=== PATIENT | male | born 1960 | race Caucasian/White ===

== ENCOUNTER → 2017-06-18 | Outpatient (CLI) | payer OTHER | LOC: M RAD 11:17 | DX: M25.562 Pain in left knee (principal) ==

== ENCOUNTER → 2018-04-02 | Outpatient (CLI) | payer OTHER ==
[2018-04-02 17:54] LABS: ALBUMIN 3.2 GM/DL (3.2-5.2); ALBUMIN/GLOBULIN RATIO 0.89 (1.00-1.93); ALKALINE PHOSPHATASE 89 U/L (45-117); ALT/SGPT 39 U/L (12-78); AST/SGOT 16 U/L (7-37); BILIRUBIN,DIRECT < 0.1 MG/DL (0.0-0.2); BILIRUBIN,TOTAL 0.3 MG/DL (0.2-1.0); CHOLESTEROL LEVEL 158 MG/DL (<200); CHOLESTEROL RISK RATIO 3.761 (<5); HDL CHOLESTEROL 42 MG/DL (>40); LDL CHOLESTEROL 98 MG/DL (<100); NON-HDL-C 116 MG/DL; TOTAL PROTEIN 6.8 GM/DL (6.4-8.2); TRIGLYCERIDES LEVEL 92 MG/DL (<150)
== END ==
LOC: M WUC 11:33
DX: E78.2 Mixed hyperlipidemia (principal)
CPT/HCPCS: 80076

== ENCOUNTER → 2019-04-07 | Outpatient (CLI) | payer OTHER ==
--- NOTE | 2019-04-07 11:20 | REP ---
ULTRASOUND ABDOMEN: Real-time sonographic evaluation of abdomen performed. Patient has had a cholecystectomy 01/2019. There is no intrahepatic or extrahepatic biliary dilatation, common bile duct measuring 4 mm. Visualized liver is grossly unremarkable with no gross mass. Pancreas is not well seen due to overlying bowel gas, but no gross mass is seen. Spleen is normal in size with a length of 10.8 cm. Kidneys are normal in size and echotexture, right kidney measuring 11.4 x 4.1 x 5.2 cm and left kidney 11.5 x 4.6 x 5.5 cm. There are multiple bilateral renal cysts. Largest cyst on the right is in the upper pole 2.5 x 1.2 x 2.3 cm with two other smaller cysts seen. Largest cyst on the left measures 2.6 x 2.2 x 2.0 cm with two smaller cysts seen. Abdominal aorta is normal in caliber with no aneurysm, proximally measuring 2.5 cm and distally 2.0 cm. No ascites is seen. IMPRESSION: Status post cholecystectomy. No biliary dilatation or free fluid. Bilateral renal cysts. Electronically Signed by Ángel Duran MD 04/10/2019 04:10 P
== END ==
LOC: M RAD 07:35
PROVIDERS: ATTEND Nurse Practitioner Family
DX: Z01.818 Encounter for other preprocedural examination (principal); N18.6 End stage renal disease

== ENCOUNTER 2019-04-18 18:58 | Emergency (ER) | payer OTHER ==
[~2019-04-18] VITALS: Ht 170.2 cm; Wt 96.4 kg
[2019-04-18] MEDS ORDERED: VITA50005 (19:35)
[2019-04-18] MEDS ORDERED: METO1TAB87 (19:35)
[2019-04-18] MEDS ORDERED: IRBE300T10 (19:35)
[2019-04-18] MEDS ORDERED: AMLO5TAB6 (19:35)
[2019-04-18] MEDS ORDERED: CINA60TA3 (19:35)
[2019-04-18] MEDS ORDERED: SODI650T (19:35)
[2019-04-18] MEDS ORDERED: ONGL10TA3 (19:35)
[2019-04-18] MEDS ORDERED: ATOR1TAB21 (19:35)
[2019-04-18] MEDS ORDERED: CALC1CAP31 (19:35)
[2019-04-18] MEDS ORDERED: FEBU40TA2 (19:38)
[2019-04-18] MEDS ORDERED: CINA30TA4 (19:38)
[2019-04-18] MEDS ORDERED: FEBU40TA4 (19:38)
[2019-04-18] MEDS ORDERED: VP-V1TAB (19:38)
[2019-04-18] MEDS ORDERED: CINA30TA5 (19:38)
[2019-04-18] MEDS ORDERED: SEVE400T (19:38)
[2019-04-18] MEDS ORDERED: CINA30TA4 PO (19:40)
[2019-04-18] MEDS ORDERED: DULC5TAB PO (19:41)
[2019-04-18] MEDS ORDERED: ACETAMINOPHEN 325 MG TAB PO ONE (19:45)
[2019-04-18] MEDS ORDERED: ACET-683 PO (20:09)
--- NOTE | 2019-04-18 20:33 | REP ---
Clinical: Pain Technique: AP, lateral, bilateral oblique and sunrise views right knee. Findings: The osseous structures and joint spaces are intact and there is no evidence for acute fracture or dislocation. Generalized age-related changes are appreciated including evidence for patellar tendinopathy. Suprapatellar effusion cannot be excluded. Surrounding soft tissues are unremarkable. No subcutaneous emphysema or radiodense foreign body. Impression: No acute fracture or dislocation. Generalized degenerative changes. Electronically Signed by Rian Flower MD 04/18/2019 08:25 P
[2019-04-18 21:00] VITALS: BP 150/85
== END 2019-04-18 21:05 | disposition home or self-care (01) ==
LOC: M ED 18:58
DX: M17.11 Unilateral primary osteoarthritis, right knee (principal); M25.461 Effusion, right knee; I25.10 Atherosclerotic heart disease of native coronary artery without angina pectoris; E11.9 Type 2 diabetes mellitus without complications; E78.5 Hyperlipidemia, unspecified; F17.210 Nicotine dependence, cigarettes, uncomplicated; Z79.4 Long term (current) use of insulin; Z79.899 Other long term (current) drug therapy

== ENCOUNTER → 2019-04-20 | Outpatient (CLI) | payer OTHER ==
[~2019-04-20] MED LIST: ACET-683 PO; AMLO5TAB6; ATOR1TAB21; CALC1CAP31; CINA30TA4; CINA30TA4 PO; CINA30TA5; CINA60TA3; DULC5TAB PO; FEBU40TA2; FEBU40TA4; IRBE300T10; METO1TAB87; ONGL10TA3; SEVE400T; SODI650T; VITA50005; VP-V1TAB
--- NOTE | 2019-04-20 15:53 | REP ---
Right lower extremity Duplex Doppler venous ultrasound: Real time compression and duplex Doppler interrogation of the right lower extremity deep venous system is performed. The right common femoral, superficial femoral and popliteal veins are fully compressible with transducer pressure and demonstrate normal spontaneous and phasic flow, without evidence of deep venous thrombosis. Impression: No evidence of deep venous thrombosis of the right lower extremity femoral popliteal venous system. Electronically Signed by Ángel Duran MD 04/20/2019 03:45 P
== END ==
LOC: M RAD 15:07
PROVIDERS: ATTEND Nurse Practitioner Family
DX: M79.604 Pain in right leg (principal); R60.0 Localized edema

== ENCOUNTER → 2019-05-01 | Outpatient (CLI) | payer OTHER, BC ==
[2019-05-01 11:11] LABS: BASO # 0.1 10^3/uL (0.0-0.2); BASO % 0.6 % (0.0-1.0); EOS # 0.7 10^3/uL (0.0-0.5); EOS % 5.7 % (0.0-3.0); HEMATOCRIT 38.1 % (42.0-52.0); LYMPH # 2.2 10^3/uL (1.5-5.0); LYMPH % 17.1 % (24.0-44.0); MEAN CORPUSCULAR HEMOGLOBIN 31.6 pg (27.0-33.0); MEAN CORPUSCULAR HGB CONC 34.1 g/dl (32.0-36.5); MEAN CORPUSCULAR VOLUME 92.5 fl (80.0-96.0); MONO # 1.1 10^3/uL (0.0-0.8); MONO % 8.3 % (0.0-5.0); NEUTROPHILS # 8.7 10^3/uL (1.5-8.5); NEUTROPHILS % 67.2 % (36.0-66.0); PLATELET COUNT, AUTOMATED 212 10^3/uL (150-450); RED BLOOD COUNT 4.12 10^6/uL (4.30-6.10)
[2019-05-01 11:23] LABS: INR 1.07; PROTHROMBIN TIME 13.6 SECONDS (11.8-14.0)
[2019-05-01 11:24] LABS: PARTIAL THROMBOPLASTIN TIME 28.5 SECONDS (25.0-38.4)
[2019-05-01 11:47] LABS: ALBUMIN 3.4 GM/DL (3.2-5.2); ALT/SGPT 36 U/L (12-78); BILIRUBIN,DIRECT 0.1 MG/DL (0.0-0.2); BILIRUBIN,TOTAL 0.4 MG/DL (0.2-1.0); BLOOD UREA NITROGEN 67 MG/DL (7-18); CALCIUM LEVEL 11.3 MG/DL (8.8-10.2); CARBON DIOXIDE LEVEL 19 MEQ/L (21-32); CHLORIDE LEVEL 113 MEQ/L (98-107); CHOLESTEROL LEVEL 132 MG/DL (<200); CREATININE FOR GFR 5.83 MG/DL (0.70-1.30); GLOMERULAR FILTRATION RATE 10.6 (>49); GLUCOSE, FASTING 90 MG/DL (70-100); HDL CHOLESTEROL 50 MG/DL (>40); LDL CHOLESTEROL 66 MG/DL (<100); MAGNESIUM LEVEL 1.9 MG/DL (1.8-2.4); NON-HDL-C 82 MG/DL; PHOSPHORUS LEVEL 7.2 MG/DL (2.5-4.9); POTASSIUM SERUM 4.5 MEQ/L (3.5-5.1); PROSTATIC SPECIFIC AG MONITOR 1.55 NG/ML (< 4.00); SODIUM LEVEL 141 MEQ/L (136-145); TRIGLYCERIDES LEVEL 81 MG/DL (<150); URIC ACID 5.9 MG/DL (3.5-7.2)
[2019-05-01 11:50] LABS: PTH INTACT 341.9 PG/ML (18.5-88.0)
[2019-05-01 11:51] LABS: HEPATITIS B SURFACE ANTIBODY NEGATIVE (POSITIVE)
[2019-05-01 12:02] LABS: HEPATITIS B SURFACE ANTIGEN NEGATIVE (NEGATIVE)
[2019-05-01 12:12] LABS: HEMOGLOBIN A1c 5.2 %
[2019-05-01 12:29] LABS: HEPATITIS C VIRUS ABY INDEX 0.2 INDEX (<0.8)
[2019-05-03 00:07] LABS: CARDIOLIPIN IGA ANTIBODY <9 APL U/mL (0-11); CARDIOLIPIN IGG ANTIBODY <9 GPL U/mL (0-14); CARDIOLIPIN IGM ANTIBODY <9 MPL U/mL (0-12); EBV AB TO NUCLEAR ANTIGEN 26.7 U/mL (0.0-17.9); EBV VIRAL CAPSID AG IgM <36.0 U/mL (0.0-35.9); G6PD2 4.01 x10E6/uL (4.14-5.80); G6PD3 276 (146-376); HERPES ZOSTER, VARICELLA IgG 1259 index (Immune >165); RUBEOLA IgG ANTIBODY >300.0 AU/mL (Immune >16.4)
[2019-05-03 09:33] LABS: HIV 1&2 SCREEN CENTAUR NEGATIVE (NEGATIVE)
== END ==
LOC: M LAB 10:14
PROVIDERS: ATTEND Nurse Practitioner Family
DX: Z01.818 Encounter for other preprocedural examination (principal)

== ENCOUNTER → 2019-05-01 | Outpatient (CLI) | payer BC, OTHER ==
[2019-05-01 11:12] LABS: HEMATOCRIT 38.3 % (42.0-52.0); HEMOGLOBIN 12.9 g/dl (13.5-17.5); MEAN CORPUSCULAR HEMOGLOBIN 31.2 pg (27.0-33.0); MEAN CORPUSCULAR HGB CONC 33.7 g/dl (32.0-36.5); MEAN CORPUSCULAR VOLUME 92.5 fl (80.0-96.0); PLATELET COUNT, AUTOMATED 203 10^3/uL (150-450); RED BLOOD COUNT 4.14 10^6/uL (4.30-6.10)
[2019-05-01 11:45] LABS: ALBUMIN 3.4 GM/DL (3.2-5.2); CALCIUM LEVEL 11.5 MG/DL (8.8-10.2); CREATININE FOR GFR 5.91 MG/DL (0.70-1.30); GLOMERULAR FILTRATION RATE 10.4 (>49); PHOSPHORUS LEVEL 7.3 MG/DL (2.5-4.9); POTASSIUM SERUM 4.5 MEQ/L (3.5-5.1)
[2019-05-01 11:50] LABS: PTH INTACT 335.7 PG/ML (18.5-88.0)
== END ==
LOC: M LAB 10:03
DX: I12.0 Hypertensive chronic kidney disease with stage 5 chronic kidney disease or end stage renal disease (principal); N18.5 Chronic kidney disease, stage 5

== ENCOUNTER → 2019-05-01 | Outpatient (CLI) | payer BC, OTHER ==
--- NOTE | 2019-05-01 21:56 | REP ---
Clinical: Pretransplant evaluation. Technique: Axial noncontrast images from the thoracic inlet to the upper abdomen with coronal and sagittal re-formations. Findings: The bilateral lung bruno are well-aerated and clear. No consolidation, nodule or mass lesion. No pleural effusion or pneumothorax. Tracheobronchial tree is patent. No significant adenopathy. Atherosclerotic changes of the thoracic aorta and coronary arteries noted without aortic aneurysm or cardiomegaly. No pericardial effusion. Surrounding musculoskeletal structures are intact and without focal osseous abnormality. Impression: Normal noncontrast chest CT. Electronically Signed by Rian Flower MD 05/01/2019 09:48 P
== END ==
LOC: M RAD 09:18
PROVIDERS: ATTEND Nurse Practitioner Family
DX: Z01.818 Encounter for other preprocedural examination (principal)

== ENCOUNTER 2019-07-04 10:08 | Day surgery (SDC) | payer OTHER, BC ==
[~2019-07-04] VITALS: Ht 170.2 cm; Wt 97.1 kg
[~2019-07-04 10:08] MED LIST changes: -AMLO5TAB6; +AMLO5TAB6 PO; -ATOR1TAB21; +ATOR1TAB21 PO; -CALC1CAP31; +CALC1CAP31 PO; -CINA30TA4; -FEBU40TA4; +FEBU40TA4 PO; -IRBE300T10; +IRBE300T7 PO; -METO1TAB87; +METO1TAB87 PO; +NS 1,000 ML IV ONE; -ONGL10TA3; +ONGL10TA3 PO; -SEVE400T; +SEVE400T PO; -SODI650T; +SODI650T PO; -VITA50005; +VITA50005 PO; -VP-V1TAB; +VP-V1TAB PO
[2019-07-04] MEDS ORDERED: propofoL 200 MG/20 ML VIAL As Ordered ONE ×2 (12:32→13:01)
[2019-07-04 13:43] VITALS: BP 121/75
--- NOTE | 2019-07-04 14:12 | ROOR ---
Patient Name: Tres Guerra Procedure Date: 07/04/2019 12:09 PM Date of : 1960 Age: 59 Room: [facility] Gender: Male Note Status: Finalized Procedure: Colonoscopy Indications: Last colonoscopy: 2009 Providers: Davonte Kerr MD Referring MD: Biranna Hernandez MD Requesting Provider: Medicines: Monitored Anesthesia Care Complications: No immediate complications. Procedure: Pre-Anesthesia Assessment: - Prior to the procedure, a History and Physical was performed, and patient medications and allergies were reviewed. The patient is competent. The risks and benefits of the procedure and the sedation options and risks were discussed with the patient. All questions were answered and informed consent was obtained. Patient identification and proposed procedure were verified by the physician, the nurse and the anesthesiologist in the procedure room. Mental Status Examination: alert and oriented. Airway Examination: normal oropharyngeal airway and neck mobility. Prophylactic Antibiotics: The patient does not require prophylactic antibiotics. Prior Anticoagulants: The patient has taken no previous anticoagulant or antiplatelet agents. ASA Grade Assessment: III - A patient with severe systemic disease. After reviewing the risks and benefits, the patient was deemed in satisfactory condition to undergo the procedure. The anesthesia plan was to use monitored anesthesia care (MAC). Immediately prior to administration of medications, the patient was re-assessed for adequacy to receive sedatives. The heart rate, respiratory rate, oxygen saturations, blood pressure, adequacy of pulmonary ventilation, and response to care were monitored throughout the procedure. The physical status of the patient was re-assessed after the procedure. The Colonoscope was introduced through the anus and advanced to the cecum, identified by appendiceal orifice and ileocecal valve. The colonoscopy was unusually difficult due to a tortuous colon, the patient's body habitus and the patient's oxygen desaturation. Successful completion of the procedure was aided by changing the patient to a supine position, applying abdominal pressure, performing chin lift and administering oxygen. The patient tolerated the procedure well. The quality of the bowel preparation was good. Findings: Skin tags were found on perianal exam. A 25 mm polyp was found in the mid ascending colon. The polyp was flat. It was very difficult to see the polyp. Advancement to this point required prolonged attempts with repositioning of the paitient. He developed some oxygen desaturations which had to be addressed and there was significant motion of the colon. I was able to obtain a photo of the polyp but biopsy or polypectomy proved impossible. A 3 mm polyp was found at 70 cm proximal to the anus. The polyp was sessile. The polyp was removed with a jumbo cold forceps. Resection and retrieval were complete. Impression: - Perianal skin tags found on perianal exam. - One 25 mm polyp in the mid ascending colon. - One 3 mm polyp at 70 cm proximal to the anus, removed with a jumbo cold forceps. Resected and retrieved. Recommendation: - Discharge patient to home. - Resume previous diet. - Continue present medications. - Await pathology results. - Return to endoscopist in 1 week. Davonte Kerr MD Davonte Kerr MD 07/04/2019 2:12:24 PM Electronically signed by Davonte Kerr MD Number of Addenda: 0 Note Initiated On: 07/04/2019 12:09 PM Estimated Blood Loss: Estimated blood loss was minimal.
== END 2019-07-04 14:15 | disposition home or self-care (01) ==
LOC: M OPP 10:08
PROVIDERS: ATTEND Surgery
DX: Z12.11 Encounter for screening for malignant neoplasm of colon (principal); K63.5 Polyp of colon; K64.4 Residual hemorrhoidal skin tags

== ENCOUNTER → 2019-08-16 | Outpatient (CLI) | payer OTHER, BC ==
[~2019-08-16] MED LIST changes: -NS 1,000 ML IV ONE
== END ==
LOC: M LAB 15:41
PROVIDERS: ATTEND Nurse Practitioner Family
DX: Z01.818 Encounter for other preprocedural examination (principal)

== ENCOUNTER → 2019-08-19 | Outpatient (CLI) | payer BC, OTHER ==
[~2019-08-19] MED LIST changes: +AMLO1TAB24 PO; -AMLO5TAB6 PO
== END ==
LOC: M LABSMTC 10:51
PROVIDERS: ATTEND Anesthesiology
DX: Z01.818 Encounter for other preprocedural examination (principal); Z11.59 Encounter for screening for other viral diseases

== ENCOUNTER 2019-08-22 12:46 | Day surgery (SDC) | payer BC, OTHER ==
[~2019-08-22] VITALS: Ht 170.2 cm; Wt 97.5 kg
[~2019-08-22 12:46] MED LIST changes: -AMLO1TAB24 PO; +AMLO5TAB6 PO; +LR 1,000 ML IV ONE
[2019-08-22] MEDS ORDERED: propofoL 200 MG/20 ML VIAL As Ordered ONE (12:47)
[2019-08-22] MEDS ORDERED: LIDOCAINE 2% 100MG/5ML SDV (FOR ANES.) As Ordered ONE (12:50)
[2019-08-22] MEDS ORDERED: ROCURONIUM BROMIDE 50 MG/5 ML VIAL As Ordered ONE (14:07)
[2019-08-22] MEDS ORDERED: SUCCINYLCHOLINE 100 MG/5 ML SYRINGE (J0330) As Ordered ONE (14:07)
[2019-08-22] MEDS ORDERED: fentaNYL 100 MCG/2 ML INJECTION (J3010) As Ordered ONE (14:08)
[2019-08-22] MEDS ORDERED: MIDAZOLAM INJ 2MG/2ML VIAL (J2250 PER 1MG) As Ordered ONE (14:08)
[2019-08-22] MEDS ORDERED: PHENYLephrine HCL 500 MCG/5 ML (100MCG/ML) SYRINGE (J2370) As Ordered ONE (14:32)
[2019-08-22] MEDS ORDERED: ePHEDrine SULFATE 25 MG/5 ML(5MG/ML) SYRINGE As Ordered ONE (14:43)
[2019-08-22] MEDS ORDERED: ONDANSETRON 4MG/2ML VIAL As Ordered ONE (15:44)
[2019-08-22] MEDS ORDERED: SUGAMMADEX SODIUM 500 MG/5 ML VIAL (BRIDION) As Ordered ONE (15:44)
[2019-08-22] MEDS ORDERED: LR 1,000 ML IV SCH (16:30)
[2019-08-22] MEDS ORDERED: fentaNYL 100 MCG/2 ML INJECTION (J3010) IV PRN (16:30)
[2019-08-22] MEDS ORDERED: ONDANSETRON 4MG/2ML VIAL IV PRN (16:30)
[2019-08-22 18:05] VITALS: BP 128/74
--- NOTE | 2019-08-23 16:10 | RO ---
DATE OF PROCEDURE: 08/22/2019 PREOPERATIVE DIAGNOSIS: Ascending colon polyp. POSTOPERATIVE DIAGNOSES: 1. Ascending colon polyp. 2. Rectal polyp. PROCEDURE PERFORMED: Colonoscopy under general anesthesia with multiple biopsies of ascending colon polyp, spot marking of ascending colon polyp, and snare polypectomy of small rectal polyp. SURGEON: Dr. Kerr ANESTHESIA: General. INDICATIONS FOR THE PROCEDURE: Patient is a 59-year-old man who underwent a colonoscopy on 07/04/2019. He has worsening renal failure and is trying to be placed on the transplant list. As part of the screening process he underwent colonoscopy. This was performed under monitored anesthesia care. He was noted to have a polyp in the proximal ascending colon, but because of issues with his respiration making for significant motion during the procedure as well as difficulties in keeping the scope advanced into the ascending colon it was impossible to obtain tissue from the polyp. He is now for repeat colonoscopy under general anesthesia in hopes that this will allow resection of his polyp. OPERATIVE PROCEDURE: The patient was brought to the operating room and placed on the table in a supine position. He was placed under general endotracheal anesthesia and rolled into a left lateral position. A digital rectal examination was performed, which was normal. The adult video endoscope was then inserted into the rectum and advanced under continuous video monitoring to the cecum. The appendiceal orifice was well seen. The ileocecal valve was noted. In the proximal ascending colon he was noted to have a very definite flat polyp slightly raised from surrounding tissues. This extended over the downstream edge of a fold and it was very difficult to see the entire polyp. It appeared to be perhaps 1.5-2 cm in maximum diameter. I attempted to engage the polyp with a snare without success. I attempted to reposition the scope for a different angle of approach with the snare without success. The patient was placed into a supine position and with some external counter pressure to try to achieve better exposure of the polyp and to attempt removal with a polypectomy snare and all of this proved ineffective. I was able to biopsy the polyp with a jumbo forceps and multiple biopsies were obtained from the polyp destroying I believe much of it. Several fragments were broken free and these were collected from the suction chamber. There was some minimal bleeding from the site, which stopped spontaneously. I elected to sergio the spot and so three injections with the carbon spot marker were performed, one just proximal to the lesion and two distal to the lesion. I would note that the polyp did seem quite firm when the biopsies were being obtained. After completing the attention to this polyp, the scope was slowly withdrawn and the remainder of the colon was inspected. There did appear to be a few diverticula in the left colon, particularly in the sigmoid. A small polyp, which was semipedunculated, was noted in the rectum at about 10 cm and this was removed with a cauterizing snare and the specimen was sent as specimen #2. The patient tolerated the procedure well. There were some photographs that were obtained that were entered into the [employer] system. The patient was awakened in the operating room, extubated and moved to the recovery room in stable condition. ESPINOZA
== END 2019-08-22 18:08 | disposition home or self-care (01) ==
LOC: M SDC 12:46
PROVIDERS: ATTEND Surgery
DX: K63.5 Polyp of colon (principal); K62.1 Rectal polyp; D12.2 Benign neoplasm of ascending colon; I10 Essential (primary) hypertension; I25.10 Atherosclerotic heart disease of native coronary artery without angina pectoris; K21.9 Gastro-esophageal reflux disease without esophagitis; E66.8 Other obesity; E11.9 Type 2 diabetes mellitus without complications; Z79.82 Long term (current) use of aspirin; Z79.899 Other long term (current) drug therapy; Z98.61 Coronary angioplasty status
CPT/HCPCS: 45380; 45381; 45385; 88305; J0330; J2250; J2370; J2405; J3010

== ENCOUNTER → 2019-09-23 | Outpatient (CLI) | payer BC ==
[~2019-09-23] MED LIST changes: -LR 1,000 ML IV ONE
[2019-09-24 08:43] LABS: HEMATOCRIT 37.5 % (42.0-52.0); MEAN CORPUSCULAR HEMOGLOBIN 31.7 pg (27.0-33.0); MEAN CORPUSCULAR VOLUME 99.2 fl (80.0-96.0); PLATELET COUNT, AUTOMATED 195 10^3/uL (150-450); RED BLOOD COUNT 3.78 10^6/uL (4.30-6.10); WHITE BLOOD COUNT 9.8 10^3/uL (4.0-10.0)
[2019-09-24 09:06] LABS: ALBUMIN 3.5 GM/DL (3.2-5.2); CALCIUM LEVEL 8.7 MG/DL (8.8-10.2); CREATININE FOR GFR 6.23 MG/DL (0.70-1.30); GLOMERULAR FILTRATION RATE 9.8 (>49); POTASSIUM SERUM 4.9 MEQ/L (3.5-5.1)
[2019-09-25 10:39] LABS: PTH INTACT 315.7 PG/ML (18.5-88.0)
== END ==
LOC: M WUC 10:06
PROVIDERS: ATTEND Internal Medicine Nephrology

== ENCOUNTER → 2019-11-10 | Outpatient (CLI) | payer BC ==
[~2019-11-10] MED LIST changes: +AMLO1TAB24 PO; -AMLO5TAB6 PO
[2019-11-10 13:02] LABS: CHOLESTEROL RISK RATIO 2.926 (<5)
== END ==
LOC: M WUC 09:26
PROVIDERS: ATTEND Nurse Practitioner Family
DX: E78.2 Mixed hyperlipidemia (principal)

== ENCOUNTER → 2019-12-30 | Outpatient (CLI) | payer BC ==
[2019-12-30 18:08] LABS: ALBUMIN 3.4 GM/DL (3.2-5.2); CALCIUM LEVEL 9.2 MG/DL (8.8-10.2); CREATININE FOR GFR 6.59 MG/DL (0.70-1.30); GLOMERULAR FILTRATION RATE 9.2 (>49); PHOSPHORUS LEVEL 6.3 MG/DL (2.5-4.9); POTASSIUM SERUM 4.9 MEQ/L (3.5-5.1)
[2019-12-30 18:09] LABS: HEMATOCRIT 35.8 % (42.0-52.0); HEMOGLOBIN 11.8 g/dl (13.5-17.5); MEAN CORPUSCULAR HEMOGLOBIN 31.6 pg (27.0-33.0); PLATELET COUNT, AUTOMATED 200 10^3/uL (150-450); RED BLOOD COUNT 3.73 10^6/uL (4.30-6.10); WHITE BLOOD COUNT 11.4 10^3/uL (4.0-10.0)
== END ==
LOC: M WUC 09:18
PROVIDERS: ATTEND Internal Medicine Nephrology
DX: I12.0 Hypertensive chronic kidney disease with stage 5 chronic kidney disease or end stage renal disease (principal); N18.5 Chronic kidney disease, stage 5

== ENCOUNTER → 2020-08-05 | Outpatient (REF) | payer BC ==
[2020-08-05 19:10] LABS: PERCENT SATURATION 23.8 % (19.7-50.0)
== END ==
LOC: M LAB REF 16:40
PROVIDERS: ATTEND Internal Medicine Nephrology
DX: N18.9 Chronic kidney disease, unspecified (principal); D63.1 Anemia in chronic kidney disease

== ENCOUNTER → 2020-08-06 | Outpatient (CLI) | payer BC ==
[~2020-08-06] MED LIST changes: +ISOVUE-300 61% 50ML VIAL As Ordered ONE; +LIDOCAINE 1% MDV 20ML VIAL As Ordered ONE; +MIDAZOLAM INJ 2MG/2ML VIAL (J2250 PER 1MG) As Ordered ONE; +fentaNYL 100 MCG/2 ML INJECTION (J3010) As Ordered ONE
--- NOTE | 2020-08-06 15:18 | ROOPDOC ---
[facility] Report Of Operation Report of Operation DATE OF PROCEDURE: 08/06/20 PREPROCEDURE DIAGNOSES: Stage IV renal insufficiency with increased pulsatility and dilation of left brachiocephalic AV fistula POSTPROCEDURE DIAGNOSES: Same PROCEDURE: 1. Ultrasound-guided access left cephalic vein 2. Left upper extremity fistulogram and central venogram 3. Angioplasty left proximal cephalic vein was 7 x 100 [place] balloon 4. Angioplasties left cephalic vein over the bicep with 9 x 40 and 12 x 40 [place] balloon 5. Completion venogram SURGEON: Ryann Vicente MD ANESTHESIA: Local anesthesia 2 mL lidocaine. Moderate intravenous conscious sedation with administered by Dr. Vicente. The patient was independently monitored by registered nurse assigned to the Department of radiology using automated blood pressure, EKG, and pulse oximetry. The detailed sedation record is permanently stored in the hospital information system. The following is a brief sedation record: Start time 14:34, stop time 15:03, fentanyl 75 g IV, Versed 1.5 mg IV. CONTRAST: 14 cc [id number] INDICATION FOR PROCEDURE: This is a very pleasant 60-year-old patient with stage IV renal insufficiency very close to needing dialysis. The patient had some increased pulsatility in his AV fistula which was placed 4 years ago for potential diagnosis access if he ever needed it. And he was referred to us for possible fistulogram and intervention to improve the outflow of the fistula in case he needed it in the next few weeks for dialysis. Risks benefits and alternatives were explained to the patient needs agreeable to proceed. Informed consent was obtained. We plan to use very little contrast due to his severe chronic renal insufficiency. He understands that no amount of contrast is 100% safe, but we will hydrate him before during and after the procedure to help prevent contrast-induced nephropathy that could push him over into end-stage renal disease requiring dialysis. Patient was extensively counseled and agreeable to proceed. INTERPRETATION: 1. The AV anastomosis is widely patent on color-flow Doppler images. Inflow is excellent. 2. 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 Proximal to this there is widely patent flow over the shoulder, but the cephalic vein occludes and reconstitutes proximal to the junction with subclavian vein. Connecting the short segment occlusion is a branch of the cephalic vein that arc s over the named vein connecting the proximal and distal aspect. This is somewhat diminutive in size compared to the [place] veins, I estimate 5 mm. It also mildly stenotic. The subclavian vein and innominate vein are widely patent with excellent flow back to the heart. The central veins stenosis is noted. 3. After angioplasty of the proximal left cephalic vein with a 7 x 100 [place] balloon, we noted still some residual stenoses, so a second three-minute inflation was performed with a marked improvement in thrill and the fistula, and definitely improved size of the collateral branch that connects across the cephalic occlusion. 4. Although the stenosis at the valve in the left cephalic vein over the bicep appeared very stenotic, when we angioplasty with a 9 x 40 [place] balloon, there was no waist on the balloon. Therefore, we sized up to 12 x 40 [place] balloon, which I estimated with the size of the vein proximal and distal to the stenosis. With this balloon, there was a marked waist on the balloon at the valve which released with angioplasty. After three-minute inflation we had widely patent flow back central system with no significant residual stenosis and again improvement in the thrill of the fistula. No extravasation or embolization was noted after any of the angioplasty. REPORT OF OPERATION: Patient was brought to the angiographic suite in stable condition. His left upper extremity was prepped and draped in a sterile fashion. A timeout was performed. Local anesthesia was administer to skin and subcutane ous tissue over the cephalic vein near the AV anastomosis. Ultrasound was used to examine the AV anastomosis with color Doppler flow and he was noted to be widely patent, see images. We used ultrasound to gain access to the fistula with a microneedle and a wire was passed through this access and the needle was removed. A 4 [place] sheath was placed and flushed with saline. A fistulogram and central venogram were performed, please interpretation above. We advanced Glidewire into the central system under fluoroscopic guidance. We then exchange the sheath for 6 [place] sheath and flushed the sheath with saline. A 7 x 100 [place] balloon was advanced to cross the proximal cephalic vein for 2 separate angioplasties, please interpretation above. This definitely improved outflow. We then exchange the balloon for 9 x 40 [place] balloon at the area in the cephalic vein stenotic it at a valve. There was no significant waist on the balloon, so this was upsized to a 12 x 40 [place] balloon after exchanging the sheath or 7 [place] sheath and flushing the sheath was saline. A three-minute inflation was performed with the 12 x 40 balloon, and this provided a marked improvement in flow through the valve at the bicep in the left cephalic vein. There is again improvement in the thrill and almost no pulsatility remaining in the AV fistula. This definitely helped with outflow. No extravasation was noted. A f [id number] Prolene suture was placed at the exit site of the sheath and the sheath was removed is a suture was secured. Sterile dressings were applied and pressure was held. Good hemostasis was noted and the patient was taken to recovery in stable condition. He tolerated the procedure and the sedation well. ESTIMATED BLOOD LOSS: Approximately 3 mL. COMPLICATIONS: None. PLAN: Okay to use AV fistula for dialysis if dialysis is needed. Okay to resume home diet and medications. We appreciate the opportunity to participate in the care of this patient. RYANN VICENTE MD Aug 06, 2020 15:18
[2020-08-06 15:45] VITALS: BP 144/78
== END ==
LOC: M IRPRO 12:43
PROVIDERS: ATTEND Surgery Vascular Surgery
DX: T82.590A Other mechanical complication of surgically created arteriovenous fistula, initial encounter (principal); D63.1 Anemia in chronic kidney disease; E11.22 Type 2 diabetes mellitus with diabetic chronic kidney disease; E78.5 Hyperlipidemia, unspecified; I12.9 Hypertensive chronic kidney disease with stage 1 through stage 4 chronic kidney disease, or unspecified chronic kidney disease; I25.10 Atherosclerotic heart disease of native coronary artery without angina pectoris; M10.9 Gout, unspecified; N18.4 Chronic kidney disease, stage 4 (severe); N25.81 Secondary hyperparathyroidism of renal origin; R07.2 Precordial pain; R60.9 Edema, unspecified; R80.9 Proteinuria, unspecified; X58.XXXA Exposure to other specified factors, initial encounter; Z79.82 Long term (current) use of aspirin; Z79.899 Other long term (current) drug therapy
CPT/HCPCS: 36902; 99152; 99153; C1725; C1769; C1894; J1644; J2250; J3010; Q9967

== ENCOUNTER → 2020-11-15 | Outpatient (REF) | payer BC ==
[~2020-11-15] MED LIST changes: +ERGO500029 PO; -ISOVUE-300 61% 50ML VIAL As Ordered ONE; -LIDOCAINE 1% MDV 20ML VIAL As Ordered ONE; -MIDAZOLAM INJ 2MG/2ML VIAL (J2250 PER 1MG) As Ordered ONE; -VITA50005 PO; -fentaNYL 100 MCG/2 ML INJECTION (J3010) As Ordered ONE
== END ==
LOC: M LAB REF 18:08
PROVIDERS: ATTEND Internal Medicine Nephrology
DX: N18.5 Chronic kidney disease, stage 5 (principal); N25.81 Secondary hyperparathyroidism of renal origin; E11.22 Type 2 diabetes mellitus with diabetic chronic kidney disease

== ENCOUNTER → 2021-01-31 | Outpatient (REF) | payer BC | LOC: M LAB REF 13:44 | PROVIDERS: ATTEND Internal Medicine Nephrology | DX: N18.9 Chronic kidney disease, unspecified (principal); D63.1 Anemia in chronic kidney disease ==

== ENCOUNTER → 2021-04-28 | Outpatient (REF) | payer BC | LOC: M LAB REF 17:20 | PROVIDERS: ATTEND Nurse Practitioner Family | DX: E83.42 Hypomagnesemia (principal) ==

== ENCOUNTER → 2021-07-01 | Outpatient (CLI) | payer BC | LOC: M SOG 14:31 | PROVIDERS: ATTEND Orthopaedic Surgery | DX: M25.512 Pain in left shoulder (principal) ==

== ENCOUNTER → 2021-07-31 | Outpatient (CLI) | payer BC | LOC: M PLAIMG 10:17 | PROVIDERS: ATTEND Orthopaedic Surgery | DX: M75.42 Impingement syndrome of left shoulder (principal); M67.814 Other specified disorders of tendon, left shoulder ==

== ENCOUNTER → 2021-08-20 | Outpatient (REF) | payer BC ==
[2021-08-20 17:04] LABS: IRON (FE) 32 UG/DL (65-175); PERCENT SATURATION 10.9 % (19.7-50.0); TOTAL IRON BINDING CAPACITY 293 UG/DL (250-450)
[2021-08-20 17:18] LABS: HEPATITIS B SURFACE ANTIBODY POSITIVE (POSITIVE)
[2021-08-20 17:28] LABS: HEPATITIS B SURFACE ANTIGEN NEGATIVE (NEGATIVE)
[2021-08-20 17:56] LABS: HEPATITIS B CORE ANTIBODY IGM NEGATIVE (NEGATIVE); HEPATITIS C VIRUS ABY INDEX 0.1 INDEX (<0.8)
== END ==
LOC: M LAB REF 16:44
PROVIDERS: ATTEND Nurse Practitioner Family
DX: N18.5 Chronic kidney disease, stage 5 (principal); D50.9 Iron deficiency anemia, unspecified

== ENCOUNTER → 2021-10-31 | Outpatient (CLI) | payer BC | LOC: M PLAIMG 15:00 | PROVIDERS: ATTEND Physician Assistant | DX: M79.674 Pain in right toe(s) (principal) ==

== ENCOUNTER → 2021-11-19 | Outpatient (REF) | payer BC, OTHER ==
[2021-11-20 13:45] LABS: CRYSTALS, BODY FLUID NONE SEEN (NONE SEEN); SOURCE, BODY FLUID CRYSTALS OTHER
== END ==
LOC: M LAB REF 12:22
PROVIDERS: ATTEND Podiatrist
DX: M1A.0710 Idiopathic chronic gout, right ankle and foot, without tophus (tophi) (principal)

== ENCOUNTER → 2021-12-02 | Outpatient (CLI) | payer BC ==
[~2021-12-02] MED LIST changes: +ASPI-255 PO
== END ==
LOC: M CARPUL 08:15
PROVIDERS: ATTEND Internal Medicine
DX: Z01.818 Encounter for other preprocedural examination (principal)

== ENCOUNTER → 2021-12-02 | Outpatient (REF) | payer OTHER ==
[~2021-12-02] MED LIST changes: -ASPI-255 PO
== END ==
LOC: M RAD 12-01 13:37 → EDSTATUS 08:30
PROVIDERS: ATTEND Nurse Practitioner Family
DX: Z01.818 Encounter for other preprocedural examination (principal)

== ENCOUNTER → 2021-12-30 | Outpatient (CLI) | payer BC ==
[~2021-12-30] MED LIST changes: +ASPI-255 PO; +ISOVUE-300 61% 50ML VIAL As Ordered ONE; +LIDOCAINE 1% MDV 20ML VIAL As Ordered ONE; +MIDAZOLAM INJ 2MG/2ML VIAL (J2250 PER 1MG) As Ordered ONE; +ceFAZolin 2 GM/D5W 50 ML IV BAG (J0690 PER 500MG) As Ordered ONE; +ceFAZolin SOD 2 GM in IV 1 EA IV ONE; +fentaNYL 100 MCG/2 ML INJECTION As Ordered ONE
[2021-12-30 07:46] LABS: HEMATOCRIT 36.5 % (42.0-52.0); HEMOGLOBIN 12.4 g/dl (13.5-17.5); MEAN CORPUSCULAR HEMOGLOBIN 31.4 pg (27.0-33.0); MEAN CORPUSCULAR VOLUME 92.4 fl (80.0-96.0); PLATELET COUNT, AUTOMATED 201 10^3/uL (150-450); RED BLOOD COUNT 3.95 10^6/uL (4.30-6.10); WHITE BLOOD COUNT 10.8 10^3/uL (4.0-10.0)
[2021-12-30 08:33] LABS: INR 0.94; PARTIAL THROMBOPLASTIN TIME 30.5 SECONDS (25.9-37.0)
[2021-12-30 08:37] LABS: CALCIUM LEVEL 11.4 MG/DL (8.8-10.2); CREATININE FOR GFR 9.68 MG/DL (0.70-1.30); GLOMERULAR FILTRATION RATE 5.9 (>49); POTASSIUM SERUM 3.7 MEQ/L (3.5-5.1)
[2021-12-30 10:15] VITALS: BP 117/70
== END ==
LOC: M IRPRO 06:35
PROVIDERS: ATTEND Surgery Vascular Surgery
DX: N18.6 End stage renal disease (principal); Z99.2 Dependence on renal dialysis; I82.612 Acute embolism and thrombosis of superficial veins of left upper extremity
CPT/HCPCS: 36902; 80048; 85027; 85610; 85730; 86850; 86900; 86901; 99152; 99153; C1725; C1769; C1894; C2623; J0690; J1644; J2250; J3010; Q9967

== ENCOUNTER → 2022-01-20 | Outpatient (CLI) | payer BC ==
[~2022-01-20] MED LIST changes: -ISOVUE-300 61% 50ML VIAL As Ordered ONE; -LIDOCAINE 1% MDV 20ML VIAL As Ordered ONE; -MIDAZOLAM INJ 2MG/2ML VIAL (J2250 PER 1MG) As Ordered ONE; -ceFAZolin 2 GM/D5W 50 ML IV BAG (J0690 PER 500MG) As Ordered ONE; -ceFAZolin SOD 2 GM in IV 1 EA IV ONE; -fentaNYL 100 MCG/2 ML INJECTION As Ordered ONE
== END ==
LOC: M LABSMTC 09:11
PROVIDERS: ATTEND Anesthesiology
DX: Z01.818 Encounter for other preprocedural examination (principal); Z11.52 Encounter for screening for COVID-19

== ENCOUNTER 2022-01-23 07:26 | Day surgery (SDC) | payer BC ==
[~2022-01-23] VITALS: Ht 170.2 cm; Wt 90.7 kg
[~2022-01-23 07:26] MED LIST changes: +CelecoXIB 400 MG CAP PO ONE; +ceFAZolin SOD 2 GM in IV 1 EA IV ONE
[2022-01-23] MEDS ORDERED: fentaNYL 100 MCG/2 ML INJECTION As Ordered ONE ×2 (08:08→10:58)
[2022-01-23] MEDS ORDERED: ONDANSETRON 4MG 2ML VIAL As Ordered ONE (08:08)
[2022-01-23] MEDS ORDERED: MIDAZOLAM INJ 2MG/2ML VIAL (J2250 PER 1MG) As Ordered ONE (08:08)
[2022-01-23] MEDS ORDERED: ROCURONIUM BROMIDE 50 MG/5 ML VIAL As Ordered ONE (08:08)
[2022-01-23] MEDS ORDERED: dexameTHASONE 4 MG/ML 1ML VIAL (J1100 PER 1MG) As Ordered ONE (08:08)
[2022-01-23] MEDS ORDERED: LIDOCAINE 2% 100MG/5ML SDV (FOR ANES.) As Ordered ONE (08:08)
[2022-01-23] MEDS ORDERED: propofoL 200 MG/20 ML VIAL As Ordered ONE (08:08)
[2022-01-23] MEDS ORDERED: LR 1,000 ML IV SCH (08:35)
[2022-01-23] MEDS ORDERED: BUPIVACAINE HCL 0.25% 30ML VIAL As Ordered ONE (09:02)
[2022-01-23] MEDS ORDERED: HEPARIN SOD (PORCINE) 5000UNITS/ML 1ML VIAL/SYRINGE As Ordered ONE ×3 (09:03→10:34)
[2022-01-23] MEDS ORDERED: ePHEDrine SULFATE 25 MG/5 ML(5MG/ML) SYRINGE As Ordered ONE (10:07)
[2022-01-23] MEDS ORDERED: PHENYLephrine 500MCG 5ML (100MCG/ML) SYRINGE As Ordered ONE (10:17)
[2022-01-23] MEDS ORDERED: METOCLOPRAMIDE INJ 10MG/2ML VIAL (J2765 PER 1) As Ordered ONE (10:22)
[2022-01-23] MEDS ORDERED: ACETAMINOPHEN 1000MG 100ML IV BTL (OFIRMEV) (J0131 PER 10MG) As Ordered ONE (10:29)
[2022-01-23] MEDS ORDERED: SUGAMMADEX SODIUM 500 MG/5 ML VIAL (BRIDION) As Ordered ONE (10:31)
[2022-01-23] MEDS ORDERED: fentaNYL 100 MCG/2 ML INJECTION IV PRN (10:40)
[2022-01-23] MEDS ORDERED: NS 1,000 ML IV SCH (10:40)
[2022-01-23] MEDS ORDERED: HYDROMORPHONE HCL 0.5 MG/ 0.5 ML SYRINGE (J1170 PER 1) IV PRN (10:40)
[2022-01-23] MEDS ORDERED: ONDANSETRON 4MG 2ML VIAL IV PRN (10:40)
[2022-01-23] MEDS ORDERED: oxyCODONE 5MG TAB PO PRN (10:40)
[2022-01-23] MEDS ORDERED: OXYC1TAB23 PO (11:04)
[2022-01-23] MEDS ORDERED: PERCOCET 5MG/325MG TAB PO PRN ×2 (11:30)
[2022-01-23 12:39] VITALS: BP 123/74
== END 2022-01-23 12:50 | disposition home or self-care (01) ==
LOC: M SDC 07:26
PROVIDERS: ATTEND Surgery
DX: N18.6 End stage renal disease (principal); I12.0 Hypertensive chronic kidney disease with stage 5 chronic kidney disease or end stage renal disease; E78.5 Hyperlipidemia, unspecified; I25.10 Atherosclerotic heart disease of native coronary artery without angina pectoris; Z98.61 Coronary angioplasty status; Z79.82 Long term (current) use of aspirin; M10.9 Gout, unspecified; D64.9 Anemia, unspecified; G47.33 Obstructive sleep apnea (adult) (pediatric); Z79.899 Other long term (current) drug therapy
CPT/HCPCS: 36415; 49324; 84132; J0131; J0690; J1100; J1644; J2250; J2405; J2765; J3010

== ENCOUNTER → 2022-06-09 | Outpatient (CLI) | payer BC ==
[~2022-06-09] MED LIST changes: -CelecoXIB 400 MG CAP PO ONE; +OXYC1TAB23 PO; -ceFAZolin SOD 2 GM in IV 1 EA IV ONE
== END ==
LOC: M RAD 07:46
PROVIDERS: ATTEND Nurse Practitioner Family
DX: Z01.818 Encounter for other preprocedural examination (principal); N18.6 End stage renal disease

== ENCOUNTER → 2022-12-13 | Outpatient (CLI) | payer BC ==
[2022-12-13 09:31] LABS: BASO % 0.4 % (0.0-1.0); EOS # 0.2 10^3/uL (0.0-0.5); EOS % 2.3 % (0.0-3.0); HEMATOCRIT 37.3 % (42.0-52.0); HEMOGLOBIN 12.1 g/dl (13.5-17.5); LYMPH # 1.8 10^3/uL (1.5-5.0); LYMPH % 19.7 % (24.0-44.0); MEAN CORPUSCULAR HEMOGLOBIN 30.2 pg (27.0-33.0); MEAN CORPUSCULAR HGB CONC 32.4 g/dl (32.0-36.5); MONO # 0.8 10^3/uL (0.0-0.8); MONO % 9.3 % (2.0-8.0); NEUTROPHILS # 6.1 10^3/uL (1.5-8.5); NEUTROPHILS % 67.6 % (36.0-66.0); PLATELET COUNT, AUTOMATED 219 10^3/uL (150-450); RED BLOOD COUNT 4.01 10^6/uL (4.30-6.10)
[2022-12-13 09:34] LABS: APPEARANCE, URINE CLEAR (CLEAR); BACTERIA, URINE AUTO NEGATIVE (NEGATIVE); BILIRUBIN, URINE AUTO NEGATIVE (NEGATIVE); BLOOD, URINE BLOOD 1+ (NEGATIVE); COLOR, URINE YELLOW (YELLOW); GLUCOSE, URINE (UA) AUTO NEGATIVE (NEGATIVE); KETONE, URINE AUTO NEGATIVE (NEGATIVE); LEUKOCYTE ESTERASE, URINE AUTO NEGATIVE (NEGATIVE); NITRITE, URINE AUTO NEGATIVE (NEGATIVE); PROTEIN, URINE AUTO NEGATIVE (NEGATIVE); RBC, URINE AUTO 0 /HPF (0-3); SPECIFIC GRAVITY URINE AUTO 1.015 (1.002-1.035); SQUAMOUS EPITHELIAL CELL UR AU 0 /HPF (0-6); UROBILINOGEN, URINE AUTO 0.2 mg/dL (0.0-2.0); WBC, URINE AUTO 2 /HPF (0-3)
[2022-12-13 10:04] LABS: CREATININE,RANDOM URINE 97.6 MG/DL
[2022-12-13 10:19] LABS: ALBUMIN 3.8 G/DL (3.2-5.2); ALKALINE PHOSPHATASE 206 U/L (46-116); ALT/SGPT 23 U/L (7.0-40); AST/SGOT < 8 U/L (<34); BILIRUBIN,TOTAL 0.5 MG/DL (0.3-1.2); BLOOD UREA NITROGEN 31 MG/DL (9-23); CALCIUM LEVEL 9.8 MG/DL (8.3-10.6); CARBON DIOXIDE LEVEL 23 MMOL/L (20-31); CHLORIDE LEVEL 109 MMOL/L (98-107); CHOLESTEROL LEVEL 155 MG/DL (<200); CREATININE FOR GFR 1.55 MG/DL (0.70-1.30); GLOMERULAR FILTRATION RATE 48.3 (>49); GLUCOSE, FASTING 97 MG/DL (74-106); MAGNESIUM LEVEL 1.5 MG/DL (1.8-2.4); PHOSPHORUS LEVEL 2.7 MG/DL (2.4-5.1); POTASSIUM SERUM 4.9 MMOL/L (3.5-5.1); SODIUM LEVEL 138 MMOL/L (136-145); TOTAL PROTEIN 6.8 G/DL (5.7-8.2); TRIGLYCERIDES LEVEL 72 MG/DL (<150)
[2022-12-13 10:31] LABS: CHOLESTEROL RISK RATIO 2.48 (<5); HDL CHOLESTEROL 62.5 MG/DL (>40); LDL CHOLESTEROL 78.1 MG/DL (<100); NON-HDL-C 92.5 MG/DL
== END ==
LOC: M LAB 08:05
PROVIDERS: ATTEND Internal Medicine Nephrology
DX: Z94.0 Kidney transplant status (principal); N18.5 Chronic kidney disease, stage 5; D84.9 Immunodeficiency, unspecified; Z79.899 Other long term (current) drug therapy

== ENCOUNTER → 2022-12-27 | Outpatient (CLI) | payer BC ==
[2022-12-27 08:39] LABS: APPEARANCE, URINE CLEAR (CLEAR); BACTERIA, URINE AUTO NEGATIVE (NEGATIVE); BILIRUBIN, URINE AUTO NEGATIVE (NEGATIVE); BLOOD, URINE BLOOD 1+ (NEGATIVE); COLOR, URINE STRAW (YELLOW); GLUCOSE, URINE (UA) AUTO NEGATIVE (NEGATIVE); KETONE, URINE AUTO NEGATIVE (NEGATIVE); LEUKOCYTE ESTERASE, URINE AUTO TRACE (NEGATIVE); NITRITE, URINE AUTO NEGATIVE (NEGATIVE); PROTEIN, URINE AUTO NEGATIVE (NEGATIVE); RBC, URINE AUTO 2 /HPF (0-3); SPECIFIC GRAVITY URINE AUTO 1.012 (1.002-1.035); SQUAMOUS EPITHELIAL CELL UR AU 0 /HPF (0-6); UROBILINOGEN, URINE AUTO 0.2 mg/dL (0.0-2.0); WBC, URINE AUTO 6 /HPF (0-3)
[2022-12-27 08:42] LABS: BASO % 0.3 % (0.0-1.0); EOS # 0.2 10^3/uL (0.0-0.5); EOS % 2.5 % (0.0-3.0); HEMATOCRIT 36.9 % (42.0-52.0); LYMPH % 22.7 % (24.0-44.0); MEAN CORPUSCULAR HGB CONC 32.5 g/dl (32.0-36.5); MEAN CORPUSCULAR VOLUME 92.3 fl (80.0-96.0); MONO # 0.9 10^3/uL (0.0-0.8); MONO % 10.5 % (2.0-8.0); NEUTROPHILS # 5.6 10^3/uL (1.5-8.5); NEUTROPHILS % 62.9 % (36.0-66.0); PLATELET COUNT, AUTOMATED 199 10^3/uL (150-450); WHITE BLOOD COUNT 8.9 10^3/uL (4.0-10.0)
[2022-12-27 09:06] LABS: CREATININE,RANDOM URINE 67.2 MG/DL
[2022-12-27 09:09] LABS: ALBUMIN 3.7 G/DL (3.2-5.2); ALKALINE PHOSPHATASE 215 U/L (46-116); ALT/SGPT 25 U/L (7.0-40); AST/SGOT < 8 U/L (<34); BILIRUBIN,TOTAL 0.3 MG/DL (0.3-1.2); BLOOD UREA NITROGEN 29 MG/DL (9-23); CALCIUM LEVEL 9.6 MG/DL (8.3-10.6); CARBON DIOXIDE LEVEL 26 MMOL/L (20-31); CHLORIDE LEVEL 107 MMOL/L (98-107); CHOLESTEROL LEVEL 144 MG/DL (<200); CHOLESTEROL RISK RATIO 2.33 (<5); CREATININE FOR GFR 1.55 MG/DL (0.70-1.30); GLOMERULAR FILTRATION RATE 48.3 (>49); GLUCOSE, FASTING 105 MG/DL (74-106); HDL CHOLESTEROL 61.8 MG/DL (>40); MAGNESIUM LEVEL 1.5 MG/DL (1.8-2.4); NON-HDL-C 82.2 MG/DL; POTASSIUM SERUM 4.2 MMOL/L (3.5-5.1); SODIUM LEVEL 138 MMOL/L (136-145); TOTAL PROTEIN 6.6 G/DL (5.7-8.2); TRIGLYCERIDES LEVEL 56 MG/DL (<150)
== END ==
LOC: M LAB 08:09
PROVIDERS: ATTEND Internal Medicine Nephrology
DX: Z94.0 Kidney transplant status (principal); N18.5 Chronic kidney disease, stage 5; D84.9 Immunodeficiency, unspecified; Z79.899 Other long term (current) drug therapy

== ENCOUNTER → 2023-01-10 | Outpatient (CLI) | payer BC ==
[2023-01-10 08:44] LABS: BASO % 0.5 % (0.0-1.0); EOS # 0.2 10^3/uL (0.0-0.5); HEMATOCRIT 37.6 % (42.0-52.0); HEMOGLOBIN 12.6 g/dl (13.5-17.5); MEAN CORPUSCULAR HEMOGLOBIN 30.4 pg (27.0-33.0); MEAN CORPUSCULAR HGB CONC 33.5 g/dl (32.0-36.5); MEAN CORPUSCULAR VOLUME 90.6 fl (80.0-96.0); MONO # 0.7 10^3/uL (0.0-0.8); NEUTROPHILS # 5.8 10^3/uL (1.5-8.5); NEUTROPHILS % 65.8 % (36.0-66.0); PLATELET COUNT, AUTOMATED 209 10^3/uL (150-450); RED BLOOD COUNT 4.15 10^6/uL (4.30-6.10); WHITE BLOOD COUNT 8.8 10^3/uL (4.0-10.0)
[2023-01-10 08:49] LABS: APPEARANCE, URINE CLEAR (CLEAR); BACTERIA, URINE AUTO NEGATIVE (NEGATIVE); BILIRUBIN, URINE AUTO NEGATIVE (NEGATIVE); BLOOD, URINE BLOOD 1+ (NEGATIVE); COLOR, URINE YELLOW (YELLOW); GLUCOSE, URINE (UA) AUTO NEGATIVE (NEGATIVE); KETONE, URINE AUTO NEGATIVE (NEGATIVE); LEUKOCYTE ESTERASE, URINE AUTO NEGATIVE (NEGATIVE); NITRITE, URINE AUTO NEGATIVE (NEGATIVE); PROTEIN, URINE AUTO NEGATIVE (NEGATIVE); RBC, URINE AUTO 2 /HPF (0-3); SPECIFIC GRAVITY URINE AUTO 1.014 (1.002-1.035); SQUAMOUS EPITHELIAL CELL UR AU 0 /HPF (0-6); UROBILINOGEN, URINE AUTO 0.2 mg/dL (0.0-2.0); WBC, URINE AUTO 2 /HPF (0-3)
[2023-01-10 09:00] LABS: TOTAL PROTEIN,RANDOM URINE 22.3 MG/DL (0.0-14.0)
[2023-01-10 09:05] LABS: CREATININE,RANDOM URINE 94.4 MG/DL
[2023-01-10 09:06] LABS: ALBUMIN 3.9 G/DL (3.2-5.2); BILIRUBIN,TOTAL 0.5 MG/DL (0.3-1.2); CALCIUM LEVEL 9.2 MG/DL (8.3-10.6); CHOLESTEROL RISK RATIO 2.79 (<5); CREATININE FOR GFR 1.45 MG/DL (0.70-1.30); GLOMERULAR FILTRATION RATE 52.2 (>49); HDL CHOLESTEROL 58.3 MG/DL (>40); LDL CHOLESTEROL 83.7 MG/DL (<100); MAGNESIUM LEVEL 1.4 MG/DL (1.8-2.4); NON-HDL-C 104.7 MG/DL; PHOSPHORUS LEVEL 2.4 MG/DL (2.4-5.1); POTASSIUM SERUM 4.3 MMOL/L (3.5-5.1); TOTAL PROTEIN 6.9 G/DL (5.7-8.2)
== END ==
LOC: M LAB 08:04
PROVIDERS: ATTEND Internal Medicine Nephrology
DX: Z94.0 Kidney transplant status (principal); N18.5 Chronic kidney disease, stage 5; D84.9 Immunodeficiency, unspecified; Z79.899 Other long term (current) drug therapy

== ENCOUNTER → 2023-02-07 | Outpatient (CLI) | payer BC ==
[~2023-02-07] MED LIST changes: -FEBU40TA2; +FEBU40TA6
[2023-02-07 08:59] LABS: BASO % 0.4 % (0.0-1.0); EOS # 0.3 10^3/uL (0.0-0.5); EOS % 2.7 % (0.0-3.0); HEMATOCRIT 38.8 % (42.0-52.0); HEMOGLOBIN 12.8 g/dl (13.5-17.5); LYMPH # 2.1 10^3/uL (1.5-5.0); LYMPH % 22.7 % (24.0-44.0); MEAN CORPUSCULAR HEMOGLOBIN 29.4 pg (27.0-33.0); MEAN CORPUSCULAR VOLUME 89.2 fl (80.0-96.0); MONO # 0.9 10^3/uL (0.0-0.8); MONO % 9.8 % (2.0-8.0); NEUTROPHILS % 63.5 % (36.0-66.0); PLATELET COUNT, AUTOMATED 202 10^3/uL (150-450); RED BLOOD COUNT 4.35 10^6/uL (4.30-6.10); WHITE BLOOD COUNT 9.4 10^3/uL (4.0-10.0)
[2023-02-07 09:02] LABS: APPEARANCE, URINE CLEAR (CLEAR); BACTERIA, URINE AUTO NEGATIVE (NEGATIVE); BILIRUBIN, URINE AUTO NEGATIVE (NEGATIVE); BLOOD, URINE BLOOD 1+ (NEGATIVE); COLOR, URINE STRAW (YELLOW); GLUCOSE, URINE (UA) AUTO NEGATIVE (NEGATIVE); KETONE, URINE AUTO NEGATIVE (NEGATIVE); LEUKOCYTE ESTERASE, URINE AUTO NEGATIVE (NEGATIVE); NITRITE, URINE AUTO NEGATIVE (NEGATIVE); PROTEIN, URINE AUTO NEGATIVE (NEGATIVE); RBC, URINE AUTO 0 /HPF (0-3); SPECIFIC GRAVITY URINE AUTO 1.012 (1.002-1.035); SQUAMOUS EPITHELIAL CELL UR AU 0 /HPF (0-6); UROBILINOGEN, URINE AUTO 0.2 mg/dL (0.0-2.0); WBC, URINE AUTO 1 /HPF (0-3)
[2023-02-07 09:23] LABS: ALBUMIN 3.9 G/DL (3.2-5.2); BILIRUBIN,TOTAL 0.3 MG/DL (0.3-1.2); CALCIUM LEVEL 9.7 MG/DL (8.3-10.6); CHOLESTEROL RISK RATIO 2.6 (<5); CREATININE FOR GFR 1.52 MG/DL (0.70-1.30); GLOMERULAR FILTRATION RATE 49.4 (>49); HDL CHOLESTEROL 54.9 MG/DL (>40); LDL CHOLESTEROL 76.7 MG/DL (<100); MAGNESIUM LEVEL 1.6 MG/DL (1.8-2.4); NON-HDL-C 88.1 MG/DL; PHOSPHORUS LEVEL 3.3 MG/DL (2.4-5.1); POTASSIUM SERUM 4.7 MMOL/L (3.5-5.1); TOTAL PROTEIN 6.7 G/DL (5.7-8.2)
[2023-02-07 09:30] LABS: TOTAL PROTEIN,RANDOM URINE 16.2 MG/DL (0.0-14.0)
[2023-02-07 09:35] LABS: CREATININE,RANDOM URINE 70.2 MG/DL
== END ==
LOC: M LAB 08:14
PROVIDERS: ATTEND Internal Medicine Nephrology
DX: Z94.0 Kidney transplant status (principal); N18.5 Chronic kidney disease, stage 5; D84.9 Immunodeficiency, unspecified; Z79.899 Other long term (current) drug therapy

== ENCOUNTER → 2023-03-21 | Outpatient (CLI) | payer BC ==
[2023-03-21 08:44] LABS: APPEARANCE, URINE CLEAR (CLEAR); BACTERIA, URINE AUTO NEGATIVE (NEGATIVE); BILIRUBIN, URINE AUTO NEGATIVE (NEGATIVE); BLOOD, URINE BLOOD 1+ (NEGATIVE); COLOR, URINE STRAW (YELLOW); GLUCOSE, URINE (UA) AUTO NEGATIVE (NEGATIVE); KETONE, URINE AUTO NEGATIVE (NEGATIVE); LEUKOCYTE ESTERASE, URINE AUTO TRACE (NEGATIVE); NITRITE, URINE AUTO NEGATIVE (NEGATIVE); PROTEIN, URINE AUTO NEGATIVE (NEGATIVE); RBC, URINE AUTO 1 /HPF (0-3); SQUAMOUS EPITHELIAL CELL UR AU 0 /HPF (0-6); UROBILINOGEN, URINE AUTO 0.2 mg/dL (0.0-2.0); WBC, URINE AUTO 4 /HPF (0-3)
[2023-03-21 08:47] LABS: BASO % 0.4 % (0.0-1.0); EOS # 0.3 10^3/uL (0.0-0.5); EOS % 2.6 % (0.0-3.0); HEMATOCRIT 39.7 % (42.0-52.0); HEMOGLOBIN 13.2 g/dl (13.5-17.5); LYMPH # 2.1 10^3/uL (1.5-5.0); LYMPH % 20.4 % (24.0-44.0); MEAN CORPUSCULAR HEMOGLOBIN 29.7 pg (27.0-33.0); MEAN CORPUSCULAR HGB CONC 33.2 g/dl (32.0-36.5); MEAN CORPUSCULAR VOLUME 89.4 fl (80.0-96.0); MONO # 0.9 10^3/uL (0.0-0.8); MONO % 8.8 % (2.0-8.0); NEUTROPHILS # 6.8 10^3/uL (1.5-8.5); NEUTROPHILS % 66.8 % (36.0-66.0); PLATELET COUNT, AUTOMATED 216 10^3/uL (150-450); RED BLOOD COUNT 4.44 10^6/uL (4.30-6.10); WHITE BLOOD COUNT 10.2 10^3/uL (4.0-10.0)
[2023-03-21 09:05] LABS: TOTAL PROTEIN,RANDOM URINE 18.1 MG/DL (0.0-14.0)
[2023-03-21 09:10] LABS: ALBUMIN 3.9 G/DL (3.2-5.2); BILIRUBIN,TOTAL 0.5 MG/DL (0.3-1.2); CALCIUM LEVEL 9.8 MG/DL (8.3-10.6); CHOLESTEROL RISK RATIO 2.7 (<5); CREATININE FOR GFR 1.51 MG/DL (0.70-1.30); GLOMERULAR FILTRATION RATE 49.8 (>49); HDL CHOLESTEROL 62.9 MG/DL (>40); LDL CHOLESTEROL 88.5 MG/DL (<100); MAGNESIUM LEVEL 1.5 MG/DL (1.8-2.4); NON-HDL-C 107.1 MG/DL; POTASSIUM SERUM 4.6 MMOL/L (3.5-5.1); TOTAL PROTEIN 6.8 G/DL (5.7-8.2)
== END ==
LOC: M LAB 08:08
PROVIDERS: ATTEND Internal Medicine Nephrology
DX: Z94.0 Kidney transplant status (principal); D84.9 Immunodeficiency, unspecified; N18.5 Chronic kidney disease, stage 5; Z79.899 Other long term (current) drug therapy

== ENCOUNTER 2023-04-15 06:40 | Day surgery (SDC) | payer BC ==
[~2023-04-15] VITALS: Ht 170.2 cm; Wt 99.7 kg
[~2023-04-15 06:40] MED LIST changes: +AMLO1TAB25 PO; +AURY1TAB PO; +BSS IRRIG/VANCO(10MG)/TOBRA(5MG)/EPINEPH(1:1000-0.5CC)500ML BAG-ORONLY IR ONE; +CALC500C16 PO; +CARV12.5 PO; +CEFUROXIME 1MG/0.1ML INTRACAMERAL INJ As Ordered ONE; +CINA60TA3 PO; +CYCLOPENTOLATE 1% OPHTH SOLN 2ML BTL OD SCH; +EQL50TAB2 PO; +IRBE75TA4 PO; +LIDOCAINE 1% SDV 5ML VIAL As Ordered ONE; +LIDOCAINE 3.5 % 1ML OPHTH TOPICAL GEL OU ONE; +MYCO500T PO; +NEPH1TAB8 PO; +OFLOXACIN 0.3 % (OCUFLOX) OPTH SOL 5ML OD ONE; +OXYC-517 PO; +PHENYLEPHRINE 10% OPHTH SOL 5ML OD PRN; +PHENYLEPHRINE 2.5% OPHTH SOL 2ML OD SCH; +PRED5PAK PO; +TACR1CAP3 PO; +TROPICAMIDE 1% OPHTH SOLN 15ML OD SCH
[2023-04-15] MEDS ORDERED: fentaNYL 100 MCG/2 ML INJECTION As Ordered ONE (07:20)
[2023-04-15] MEDS ORDERED: MIDAZOLAM INJ 2MG/2ML VIAL As Ordered ONE (07:20)
[2023-04-15 10:03] VITALS: BP 150/81; TEMP 97.1; O2SAT 97
== END 2023-04-15 10:06 | disposition home or self-care (01) ==
LOC: M SDC 06:40
PROVIDERS: ATTEND Ophthalmology
DX: E11.36 Type 2 diabetes mellitus with diabetic cataract (principal); H25.11 Age-related nuclear cataract, right eye; I10 Essential (primary) hypertension; I25.10 Atherosclerotic heart disease of native coronary artery without angina pectoris; E78.00 Pure hypercholesterolemia, unspecified; M10.9 Gout, unspecified; Z79.899 Other long term (current) drug therapy; Z95.5 Presence of coronary angioplasty implant and graft; Z90.49 Acquired absence of other specified parts of digestive tract
CPT/HCPCS: 66984; 92015; J0697; J2250; J3010; V2788

== ENCOUNTER → 2023-04-16 | Outpatient (CLI) | payer BC ==
[~2023-04-16] MED LIST changes: -BSS IRRIG/VANCO(10MG)/TOBRA(5MG)/EPINEPH(1:1000-0.5CC)500ML BAG-ORONLY IR ONE; -CEFUROXIME 1MG/0.1ML INTRACAMERAL INJ As Ordered ONE; -CYCLOPENTOLATE 1% OPHTH SOLN 2ML BTL OD SCH; -LIDOCAINE 1% SDV 5ML VIAL As Ordered ONE; -LIDOCAINE 3.5 % 1ML OPHTH TOPICAL GEL OU ONE; -OFLOXACIN 0.3 % (OCUFLOX) OPTH SOL 5ML OD ONE; -PHENYLEPHRINE 10% OPHTH SOL 5ML OD PRN; -PHENYLEPHRINE 2.5% OPHTH SOL 2ML OD SCH; -TROPICAMIDE 1% OPHTH SOLN 15ML OD SCH
[2023-04-16 08:23] LABS: BASO % 0.5 % (0.0-1.0); EOS # 0.2 10^3/uL (0.0-0.5); EOS % 2.3 % (0.0-3.0); HEMATOCRIT 38.3 % (42.0-52.0); HEMOGLOBIN 12.8 g/dl (13.5-17.5); LYMPH # 1.8 10^3/uL (1.5-5.0); LYMPH % 21.7 % (24.0-44.0); MEAN CORPUSCULAR HEMOGLOBIN 29.7 pg (27.0-33.0); MEAN CORPUSCULAR HGB CONC 33.4 g/dl (32.0-36.5); MEAN CORPUSCULAR VOLUME 88.9 fl (80.0-96.0); MONO # 0.8 10^3/uL (0.0-0.8); MONO % 9.9 % (2.0-8.0); NEUTROPHILS # 5.3 10^3/uL (1.5-8.5); NEUTROPHILS % 64.7 % (36.0-66.0); PLATELET COUNT, AUTOMATED 204 10^3/uL (150-450); RED BLOOD COUNT 4.31 10^6/uL (4.30-6.10); WHITE BLOOD COUNT 8.2 10^3/uL (4.0-10.0)
[2023-04-16 08:47] LABS: ALBUMIN 3.8 G/DL (3.2-5.2); BILIRUBIN,TOTAL 0.4 MG/DL (0.3-1.2); CALCIUM LEVEL 9.3 MG/DL (8.3-10.6); CHOLESTEROL RISK RATIO 2.65 (<5); CREATININE FOR GFR 1.45 MG/DL (0.70-1.30); GLOMERULAR FILTRATION RATE 52.2 (>49); HDL CHOLESTEROL 61.7 MG/DL (>40); LDL CHOLESTEROL 87.9 MG/DL (<100); MAGNESIUM LEVEL 1.5 MG/DL (1.8-2.4); NON-HDL-C 102.3 MG/DL; POTASSIUM SERUM 4.2 MMOL/L (3.5-5.1); TOTAL PROTEIN 6.6 G/DL (5.7-8.2)
[2023-04-16 08:55] LABS: TOTAL PROTEIN,RANDOM URINE 16.5 MG/DL (0.0-14.0)
[2023-04-16 09:13] LABS: APPEARANCE, URINE CLEAR (CLEAR); BACTERIA, URINE AUTO NEGATIVE (NEGATIVE); BILIRUBIN, URINE AUTO NEGATIVE (NEGATIVE); BLOOD, URINE BLOOD 1+ (NEGATIVE); COLOR, URINE STRAW (YELLOW); GLUCOSE, URINE (UA) AUTO NEGATIVE (NEGATIVE); KETONE, URINE AUTO NEGATIVE (NEGATIVE); LEUKOCYTE ESTERASE, URINE AUTO NEGATIVE (NEGATIVE); NITRITE, URINE AUTO NEGATIVE (NEGATIVE); PROTEIN, URINE AUTO NEGATIVE (NEGATIVE); RBC, URINE AUTO 1 /HPF (0-3); SPECIFIC GRAVITY URINE AUTO 1.011 (1.002-1.035); SQUAMOUS EPITHELIAL CELL UR AU 0 /HPF (0-6); UROBILINOGEN, URINE AUTO 0.2 mg/dL (0.0-2.0); WBC, URINE AUTO 1 /HPF (0-3)
== END ==
LOC: M LAB 07:44
PROVIDERS: ATTEND Internal Medicine Nephrology
DX: Z94.0 Kidney transplant status (principal); N18.9 Chronic kidney disease, unspecified; D84.9 Immunodeficiency, unspecified; Z79.899 Other long term (current) drug therapy

== ENCOUNTER 2023-05-20 07:42 | Day surgery (SDC) | payer BC ==
[~2023-05-20] VITALS: Ht 170.2 cm; Wt 100.4 kg
[~2023-05-20 07:42] MED LIST changes: +BSS IRRIG/VANCO(10MG)/TOBRA(5MG)/EPINEPH(1:1000-0.5CC)500ML BAG-ORONLY IR ONE; +CEFUROXIME 1MG/0.1ML INTRACAMERAL INJ As Ordered ONE; +CYCLOPENTOLATE 1% OPHTH SOLN 2ML BTL OS SCH; +IRBE300T25 PO; -IRBE300T7 PO; +IRBE75TA11 PO; -IRBE75TA4 PO; +LIDOCAINE 1% SDV 5ML VIAL As Ordered ONE; +LIDOCAINE 3.5 % 1ML OPHTH TOPICAL GEL OU ONE; +MIDAZOLAM INJ 2MG/2ML VIAL As Ordered ONE; +OFLOXACIN 0.3 % (OCUFLOX) OPTH SOL 5ML OS ONE; +PHENYLEPHRINE 10% OPHTH SOL 5ML OS PRN; +PHENYLEPHRINE 2.5% OPHTH SOL 2ML OS SCH; +TROPICAMIDE 1% OPHTH SOLN 15ML OS SCH; +fentaNYL 100 MCG/2 ML INJECTION As Ordered ONE
[2023-05-20 09:53] VITALS: BP 141/76; TEMP 97.5; O2SAT 96
== END 2023-05-20 10:14 | disposition home or self-care (01) ==
LOC: M SDC 07:42
PROVIDERS: ATTEND Ophthalmology
DX: E11.36 Type 2 diabetes mellitus with diabetic cataract (principal); H25.12 Age-related nuclear cataract, left eye; I10 Essential (primary) hypertension; E78.00 Pure hypercholesterolemia, unspecified; I25.10 Atherosclerotic heart disease of native coronary artery without angina pectoris; Z95.5 Presence of coronary angioplasty implant and graft; Z94.0 Kidney transplant status; Z79.52 Long term (current) use of systemic steroids; Z79.899 Other long term (current) drug therapy; M10.9 Gout, unspecified
CPT/HCPCS: 66984; 92015; J0697; J2250; J3010; V2788

== ENCOUNTER → 2023-07-28 | Outpatient (CLI) | payer BC ==
[~2023-07-28] MED LIST changes: -BSS IRRIG/VANCO(10MG)/TOBRA(5MG)/EPINEPH(1:1000-0.5CC)500ML BAG-ORONLY IR ONE; -CEFUROXIME 1MG/0.1ML INTRACAMERAL INJ As Ordered ONE; -CYCLOPENTOLATE 1% OPHTH SOLN 2ML BTL OS SCH; -LIDOCAINE 1% SDV 5ML VIAL As Ordered ONE; -LIDOCAINE 3.5 % 1ML OPHTH TOPICAL GEL OU ONE; -MIDAZOLAM INJ 2MG/2ML VIAL As Ordered ONE; -OFLOXACIN 0.3 % (OCUFLOX) OPTH SOL 5ML OS ONE; -PHENYLEPHRINE 10% OPHTH SOL 5ML OS PRN; -PHENYLEPHRINE 2.5% OPHTH SOL 2ML OS SCH; -TROPICAMIDE 1% OPHTH SOLN 15ML OS SCH; -fentaNYL 100 MCG/2 ML INJECTION As Ordered ONE
[2023-07-28 09:10] LABS: APPEARANCE, URINE CLEAR (CLEAR); BACTERIA, URINE AUTO NEGATIVE (NEGATIVE); BILIRUBIN, URINE AUTO NEGATIVE (NEGATIVE); BLOOD, URINE BLOOD 1+ (NEGATIVE); COLOR, URINE STRAW (YELLOW); GLUCOSE, URINE (UA) AUTO NEGATIVE (NEGATIVE); KETONE, URINE AUTO NEGATIVE (NEGATIVE); LEUKOCYTE ESTERASE, URINE AUTO TRACE (NEGATIVE); NITRITE, URINE AUTO NEGATIVE (NEGATIVE); PROTEIN, URINE AUTO NEGATIVE (NEGATIVE); RBC, URINE AUTO 1 /HPF (0-3); SPECIFIC GRAVITY URINE AUTO 1.011 (1.002-1.035); SQUAMOUS EPITHELIAL CELL UR AU 0 /HPF (0-6); UROBILINOGEN, URINE AUTO 0.2 mg/dL (0.0-2.0); WBC, URINE AUTO 6 /HPF (0-3)
[2023-07-28 09:19] LABS: BASO % 0.5 % (0.0-1.0); EOS # 0.3 10^3/uL (0.0-0.5); EOS % 3.4 % (0.0-3.0); HEMATOCRIT 37.5 % (42.0-52.0); HEMOGLOBIN 12.5 g/dl (13.5-17.5); LYMPH # 1.8 10^3/uL (1.5-5.0); LYMPH % 20.7 % (24.0-44.0); MEAN CORPUSCULAR HEMOGLOBIN 29.1 pg (27.0-33.0); MEAN CORPUSCULAR HGB CONC 33.3 g/dl (32.0-36.5); MEAN CORPUSCULAR VOLUME 87.4 fl (80.0-96.0); MONO # 0.9 10^3/uL (0.0-0.8); MONO % 10.2 % (2.0-8.0); NEUTROPHILS # 5.6 10^3/uL (1.5-8.5); NEUTROPHILS % 64.5 % (36.0-66.0); PLATELET COUNT, AUTOMATED 242 10^3/uL (150-450); RED BLOOD COUNT 4.29 10^6/uL (4.30-6.10); WHITE BLOOD COUNT 8.7 10^3/uL (4.0-10.0)
[2023-07-28 09:35] LABS: TOTAL PROTEIN,RANDOM URINE 14.1 MG/DL (0.0-14.0)
[2023-07-28 09:40] LABS: CREATININE,RANDOM URINE 75.3 MG/DL
[2023-07-28 09:42] LABS: ALBUMIN 3.6 G/DL (3.2-5.2); BILIRUBIN,TOTAL 0.5 MG/DL (0.3-1.2); CALCIUM LEVEL 9.1 MG/DL (8.3-10.6); CHOLESTEROL RISK RATIO 2.79 (<5); CREATININE FOR GFR 1.62 MG/DL (0.70-1.30); GLOMERULAR FILTRATION RATE 45.8 (>49); HDL CHOLESTEROL 40.1 MG/DL (>40); LDL CHOLESTEROL 53.7 MG/DL (<100); MAGNESIUM LEVEL 1.4 MG/DL (1.8-2.4); NON-HDL-C 71.9 MG/DL; PHOSPHORUS LEVEL 2.6 MG/DL (2.4-5.1); POTASSIUM SERUM 4.5 MMOL/L (3.5-5.1); TOTAL PROTEIN 6.3 G/DL (5.7-8.2)
== END ==
LOC: M LAB 08:00
PROVIDERS: ATTEND Internal Medicine Nephrology
DX: Z94.0 Kidney transplant status (principal); N18.6 End stage renal disease; D84.9 Immunodeficiency, unspecified; Z79.899 Other long term (current) drug therapy